=== PATIENT | male | born 1965 | race Caucasian/White ===

== ENCOUNTER 2023-09-01 13:43 | Emergency (ER) | payer OTHER ==
--- NOTE | 2023-09-01 14:27 | ED ---
Extremity Problem HPI - General Chief complaint: Extremity Injury, Lower Stated complaint: Leg swelling Time Seen by Provider: 09/01/23 14:12 Source: patient, RN notes reviewed Mode of arrival: ambulatory Limitations: no limitations - History of Present Illness Initial comments: This is a 58-year-old male who presents to the emergency department for lower extremity swelling. He is currently at [facility] for alcohol abuse. Patient states that this started a couple of weeks ago. Denies any pain associated with this. Additionally, he has been jaundiced since July. He went to a [facility] and had blood work and a CT scan done. He was told that his liver enzymes were high and he needed to stop drinking. He has since been sober for the last 40 days. Does not believe that the jaundice is getting worse. The swelling was not there when he was at the [facility]. Denies any chest pain or shortness of breath. Denies a history of congestive heart failure. Also denies any pain or swelling in the abdomen, nausea, or vomiting. MD Complaint: extremity swelling - Related Data Home Medications Medication Instructions Recorded Confirmed Losartan Potassium 50 mg PO DAILY 09/01/23 09/01/23 amLODIPine [Norvasc] 5 mg PO DAILY 09/01/23 09/01/23 Previous Rx's Medication Instructions Recorded Furosemide [Lasix] 40 mg PO DAILY 7 Days #7 tablet 09/01/23 Allergies Allergy/AdvReac Type Severity Reaction Status Date / Time No Known Allergies Allergy Verified 09/01/23 15:42 Review of Systems ROS Statement: Those systems with pertinent positive or pertinent negative responses have been documented in the HPI. ROS Other: All systems not noted in ROS Statement are negative. Past Medical History Past Medical History: Hypertension Additional Past Medical History / Comment(s): ETOH History of Any Multi-Drug Resistant Organisms: None Reported Past Surgical History: Joint Replacement Additional Past Surgical History / Comment(s): left hip replacement Past Psychological History: No Psychological Hx Reported Smoking Status: Never smoker Past Alcohol Use History: None Reported, Abuse Past Drug Use History: None Reported General Exam Limitations: no limitations General appearance: alert, in no apparent distress Head exam: Present: atraumatic, normocephalic, normal inspection Eye exam: Present: scleral icterus Respiratory exam: Present: normal lung sounds bilaterally. Absent: respiratory distress, wheezes, rales, rhonchi, stridor Cardiovascular Exam: Present: regular rate, normal rhythm, normal heart sounds. Absent: systolic murmur, diastolic murmur, rubs, gallop, clicks Neurological exam: Present: alert, oriented X3, CN II-XII intact Psychiatric exam: Present: normal affect, normal mood Skin exam: Present: other (jaundice) Course Vital Signs 09/01/23 09/01/23 09/01/23 14:02 15:19 17:22 Temperature 98.1 F 98.2 F 98.4 F Pulse Rate 71 69 72 Respiratory 18 16 16 Rate Blood Pressure 158/75 124/65 139/75 O2 Sat by Pulse 98 98 98 Oximetry Medical Decision Making - Medical Decision Making This is a 58 year old male who presents to the emergency department for lower extremity swelling. Was pt. sent in by a medical professional or institution? @ -No Did you speak to anyone other than the patient for history? @ -No Did you review nursing and triage notes? @ -Yes, and I agree, it is accurate with regards to the patient's symptoms. Were old charts reviewed? @ -No Differential Diagnosis? @ -Differential Leg Swelling: CHF, dependent edema, renal failure, DVT, cellulitis, this is not meant to be an all-inclusive list. EKG interpreted by me (3pts min.)? @ -Not obtained X-rays interpreted by me (1pt min.)? @ -Not obtained CT interpreted by me (1pt min.)? @ -Not obtained U/S interpreted by me (1pt. min.)? @ -Not obtained What testing was considered but not performed? (CT, X-rays, U/S, labs)? Why? @ -None What meds were considered but not given? Why? @ -None Did you discuss the management of the patient with other professionals? @ -No Did you reconcile home meds? @ -No Was smoking cessation discussed for >3mins.? @ -No Was critical care preformed (if so, how long)? @ -No Were there social determinants of health that impacted care today? How? (Homelessness, low income, unemployed, alcoholism, drug addiction, transportation, low edu. Level, literacy, decrease access to med. care, senior care, rehab)? @ -Alcoholism, contributing to the jaundice and poor liver function. Was there de-escalation of care discussed even if they declined? (Discuss DNR or withdrawal of care, Hospice)? @ -No What co-morbidities impacted this encounter? (DM, HTN, Smoking, COPD, CAD, Cancer, CVA, Hep., AIDS, mental health diagnosis, sleep apnea, morbid obesity)? @ -Alcoholism, HTN Was patient admitted / discharged? @ -Discharged. Lab work demonstrates low platelets of 53, however we have no prior values for comparison. Thrombocytopenia is likely induced by the alcoholism. Bilirubin is 8.4 with normal AST, ALT, and alkaline phosphatase. Renal function WNL. BNP negative for signs of CHF. Discussed the possibility of the edema being related to cirrhosis and/or dependent edema. He had no erythema, tenderness, or warmth to suggest infectious process or concerns for DVT. Edema was also all pitting. 40 mg of Lasix administered in the emergency department. Prescription for 7-day course of Lasix provided as well for further management. Advised keeping the legs elevated and using compression dressin gs/stockings. Patient discharged back to [facility] in stable condition. Undiagnosed new problem with uncertain prognosis? @ -None Drug Therapy requiring intensive monitoring for toxicity (Heparin, Nitro, Insulin, Cardizem)? @ -None Were any procedures done? @ -None Diagnosis/symptom? @ -Leg edema Acute, or Chronic, or Acute on Chronic? @ -Acute Uncomplicated (without systemic symptoms) or Complicated (systemic symptoms)? @ -Uncomplicated Side effects of treatment? @ -None Exacerbation, Progression, or Severe Exacerbation] @ -Not applicable Poses a threat to life or bodily function? @ -No Return precautions reviewed in depth, the patient is instructed to return to the emergency department with any new, worsening, or concerning symptoms. Patient verbalized understanding. This case was discussed in detail with the attending ED physician, Dr. Nava. P resentation, findings, and treatment plan discussed in detail as well. - Lab Data Result diagrams: 09/01/23 15:22 09/01/23 15:22 Lab Results 09/01/23 09/01/23 09/01/23 Range/Units 14:49 15:22 15:22 WBC 3.7 L (3.8-10.6) k/uL RBC 3.03 L (4.30-5.90) m/uL Hgb 10.9 L (13.0-17.5) gm/dL Hct 33.6 L (39.0-53.0) % MCV 110.8 H (80.0-100.0) fL MCH 36.1 H (25.0-35.0) pg MCHC 32.5 (31.0-37.0) g/dL RDW 14.0 (11.5-15.5) % Plt Count 53 L (150-450) k/uL MPV 8.0 Neutrophils % 61 % Lymphocytes % 24 % Monocytes % 8 % Eosinophils % 4 % Basophils % 1 % Neutrophils # 2.2 (1.3-7.7) k/uL Lymphocytes # 0.9 L (1.0-4.8) k/uL Monocytes # 0.3 (0-1.0) k/uL Eosinophils # 0.1 (0-0.7) k/uL Basophils # 0.1 (0-0.2) k/uL Manual Slide Review Performed Polychromasia Present Macrocytosis Marked A Sodium 138 (137-145) mmol/L Potassium 3.7 (3.5-5.1) mmol/L Chloride 110 H (98-107) mmol/L Carbon Dioxide 25 (22-30) mmol/L Anion Gap 3 mmol/L BUN 10 (9-20) mg/dL Creatinine 0.56 L (0.66-1.25) mg/dL Est GFR (CKD-EPI)AfAm >90 (>60 ml/min/1.73 sqM) Est GFR (CKD-EPI)NonAf >90 (>60 ml/min/1.73 sqM) Glucose 95 (74-99) mg/dL Calcium 8.6 (8.4-10.2) mg/dL Total Bilirubin 8.4 H (0.2-1.3) mg/dL Conjugated Bilirubin 0.9 H (0.0-0.3) mg/dL Unconjugated Bilirubin 3.8 H (0.0-1.1) mg/dL Delta Bilirubin 3.7 H (0.0-0.2) mg/dL AST 56 (17-59) U/L ALT 39 (4-49) U/L Alkaline Phosphatase 123 (38-126) U/L NT-Pro-B Natriuret Pep 268 pg/mL Total Protein 5.5 L (6.3-8.2) g/dL Albumin 2.6 L (3.5-5.0) g/dL Urine Color [place] Urine Appearance Clear (Clear) Urine pH 5.5 (5.0-8.0) Ur Specific [place] 1.019 (1.001-1.035) Urine Protein Negative (Negative) Urine Glucose (UA) Negative (Negative) Urine Ketones Negative (Negative) Urine Blood Negative (Negative) Urine Nitrite Negative (Negative) Urine Bilirubin 1+ H (Negative) Urine Urobilinogen 6.0 (<2.0) mg/dL Ur Leukocyte Esterase Negative (Negative) Disposition Clinical Impression: Jaundice, Leg edema Disposition: HOME SELF-CARE Instructions (If sedation given, give patient instructions): Leg Edema (ED), Jaundice (ED) Additional Instructions: Return to the emergency department with any new, worsening, or concerning symptoms. Take the Lasix daily for 7 days. Take your first dose tomorrow, as you received a dose in the emergency department today. Keep your legs elevated and use compression stockings or Major bandages to wrap the legs. Continue to avoid alcohol. Follow up with your primary care provider in 1-2 days. Prescriptions: Furosemide [Lasix] 40 mg PO DAILY 7 Days #7 tablet Is patient prescribed a controlled substance at d/c from ED?: No Referrals: None,Stated [Primary Care Provider] - 1-2 days Time of Disposition: 17:00
[2023-09-01 15:02] LABS: Appearance,Urine Clear (Clear); Bilirubin,Urine 1+ (Negative); Blood,Urine Negative (Negative); Color,Urine Orange; Glucose,Urine (UA) Negative (Negative); Ketones,Urine Negative (Negative); Leukocyte Esterase,Urine Negative (Negative); Nitrite,Urine Negative (Negative); PH, Urine 5.5 (5.0-8.0); Protein,Urine Negative (Negative); Specific Gravity,Urine 1.019 (1.001-1.035)
[2023-09-01 15:22] VITALS: RESP 16
[2023-09-01 16:00] LABS: Basophils # (A) 0.1 k/uL (0-0.2); Basophils % (A) 1 %; Eosinophils # (A) 0.1 k/uL (0-0.7); Eosinophils % (A) 4 %; HCT 33.6 % (39.0-53.0); HGB 10.9 gm/dL (13.0-17.5); Lymphocytes # (A) 0.9 k/uL (1.0-4.8); Lymphocytes % (A) 24 %; MCH 36.1 pg (25.0-35.0); MCHC 32.5 g/dL (31.0-37.0); MCV 110.8 fL (80.0-100.0); Macrocytosis Marked; Monocytes # (A) 0.3 k/uL (0-1.0); Monocytes % (A) 8 %; Neutrophils # (A) 2.2 k/uL (1.3-7.7); Neutrophils % (A) 61 %; RBC 3.03 m/uL (4.30-5.90); WBC 3.7 k/uL (3.8-10.6)
[2023-09-01 16:28] LABS: NT-Pro-B-Type Natriuretic Pept 268 pg/mL
[2023-09-01 16:35] LABS: ALT 39 U/L (4-49); AST 56 U/L (17-59); African American GFR (CKD) >90 (>60 ml/min/1.73 sqM); Albumin 2.6 g/dL (3.5-5.0); Alkaline Phosphatase 123 U/L (38-126); Anion Gap 3 mmol/L; Blood Urea Nitrogen 10 mg/dL (9-20); Calcium 8.6 mg/dL (8.4-10.2); Carbon Dioxide 25 mmol/L (22-30); Chloride 110 mmol/L (98-107); Glucose 95 mg/dL (74-99); Non-African American GFR(CKD) >90 (>60 ml/min/1.73 sqM); Potassium 3.7 mmol/L (3.5-5.1); Sodium 138 mmol/L (137-145); Total Bilirubin 8.4 mg/dL (0.2-1.3); Total Protein 5.5 g/dL (6.3-8.2)
[2023-09-01 16:39] LABS: Platelet Count 53 k/uL (150-450); Polychromasia Present
[2023-09-01 17:05] LABS: Bilirubin, Conjugated 0.9 mg/dL (0.0-0.3); Bilirubin, Delta 3.7 mg/dL (0.0-0.2); Bilirubin,Unconjugated 3.8 mg/dL (0.0-1.1)
[2023-09-01] MEDS: FUROSEMIDE 10 MG/ML 4 ML VIAL IV STA (17:05)
[2023-09-01 17:55] VITALS: BP 139/75; PULSE 72; TEMP 98.4
== END 2023-09-01 17:24 | disposition home or self-care (01) ==
LOC: EC 13:43
DX: R17 Unspecified jaundice (principal); R60.0 Localized edema; I10 Essential (primary) hypertension
CPT/HCPCS: 99283; 96374; 36415; 83880; 80053; 82248; 85025; 81003; J1940